=== PATIENT | female | born 1950 | race Caucasian/White ===

== ENCOUNTER 2018-04-04 10:00 | Inpatient (IN) | payer OTHER ==
[~2018-04-04] VITALS: Ht 160 cm; Wt 92.5 kg
[2018-04-06] MEDS ORDERED: SYNTHROID75 MCG PO (14:25)
[2018-04-06] MEDS ORDERED: ZOLOFT100 MG PO (14:25)
[2018-04-06] MEDS ORDERED: ATENOLOL25 MG PO (14:25)
[2018-04-06] MEDS ORDERED: COZAAR100 MG PO (14:25)
[2018-04-06] MEDS ORDERED: CLONAZEPAM0.5 MG PO (14:26)
[2018-04-06] MEDS ORDERED: NEURONTIN300 MG PO (14:26)
[2018-04-06] MEDS ORDERED: RELAFEN PO (14:26)
[2018-04-06] MEDS ORDERED: XANAFLEX PO (14:27)
[2018-04-06] MEDS ORDERED: AMLODIPINE BES2.5 MG PO (14:27)
[2018-04-14] MEDS ORDERED: COLACE100 MG PO (09:11)
[2018-04-14] MEDS ORDERED: CLONAZEPAM1 MG PO (09:12)
[2018-04-14] MEDS ORDERED: PERCOCET 5-3251 EACH PO (09:12)
== END 2018-04-15 14:24 | DRG 454 ==
LOC: O/R 04-14 04:45 → PED 04-14 04:45 → SURG 04-14 07:00 → PED 04-14 16:27
PROVIDERS: Orthopaedic Surgery Orthopaedic Surgery of the Spine
PROC: 0RG2071 Fusion of 2 or more Cervical Vertebral Joints with Autologous Tissue Substitute, Posterior Approach, Posterior Column, Open Approach (ICD-10-PCS; 2018-04-14)
PROC: 0RT30ZZ Resection of Cervical Vertebral Disc, Open Approach (ICD-10-PCS; 2018-04-14)
PROC: 07DS3ZZ Extraction of Vertebral Bone Marrow, Percutaneous Approach (ICD-10-PCS; 2018-04-14)
PROC: 0RG20A0 Fusion of 2 or more Cervical Vertebral Joints with Interbody Fusion Device, Anterior Approach, Anterior Column, Open Approach (ICD-10-PCS; principal; 2018-04-14 07:00)
DX: M50.021 Cervical disc disorder at C4-C5 level with myelopathy (principal); M47.12 Other spondylosis with myelopathy, cervical region; I10 Essential (primary) hypertension; E03.8 Other specified hypothyroidism